=== PATIENT | male | born 1955 | race Caucasian/White ===

== ENCOUNTER 2017-02-20 17:29 | Inpatient (IN) | payer OTHER ==
[2017-02-20] MEDS: SOD CHLORIDE 0.9% 1,000 ML IV ×2 (18:02→20:35)
[2017-02-20] MEDS: HYDROmorphONE 1 MG/ML SYG IV ×2 (18:03→18:58)
[2017-02-20] MEDS: ONDANSETRON 4 MG INJ IV (18:03)
[2017-02-20 18:18] LABS: ADD MAN DIFF? NO
[2017-02-20 18:27] LABS: BASOPHIL # 0.1 10^3/ul (0.0-0.1); BASOPHILS % 0.5 % (0.0-2.0); EOSINOPHILS % 0.1 % (0.0-7.0); HEMOGLOBIN 13.8 g/dl (14.0-18.0); LYMPHOCYTES # 1.6 10^3/ul (0.8-2.9); LYMPHOCYTES % 9.2 % (15.0-51.0); MEAN CORPUSCULAR HEMOGLOBIN 31.2 pg (29.0-33.0); MEAN CORPUSCULAR HGB CONC 33.7 g/dl (32.0-37.0); MEAN CORPUSCULAR VOLUME 92.6 fl (82.0-101.0); MEAN PLATELET VOLUME 10.7 fl (7.4-10.4); MONOCYTE # 0.8 10^3/ul (0.3-0.9); MONOCYTES % 4.6 % (0.0-11.0); NEUTROPHIL # 14.5 10^3/ul (1.6-7.5); NEUTROPHILS % 84.9 % (39.0-77.0); PLATELET COUNT 268 10^3/UL (140-415); RED BLOOD COUNT 4.43 10^6/ul (4.70-6.10); RED CELL DISTRIBUTION WIDTH 13.1 % (11.5-14.5)
[2017-02-20 18:39] LABS: ANION GAP 23 (8-16); BLOOD UREA NITROGEN 20 mg/dl (7-20); CALCIUM 9.4 mg/dl (8.4-10.2); CARBON DIOXIDE 18 mmol/L (21-31); CHLORIDE 105 mmol/L (97-110); CREATININE 1.16 mg/dl (0.61-1.24); GLUCOSE 161 mg/dl (70-220); POTASSIUM 3.3 mmol/L (3.5-5.1); SODIUM 143 mmol/L (135-144)
[2017-02-20 18:40] LABS: LACTIC ACID 5.4 mmol/L (0.5-2.0)
[2017-02-20] MEDS: PIPER-TAZO 3.375 GM IV (PMX) 50 ML IVPB (18:51)
[2017-02-20] MEDS: SODIUM CHLORIDE 0.9% 1L BAG IV* (18:52)
[2017-02-20] MEDS ORDERED: ACETAMINOPHEN 325 MG TAB PO ×2 (19:00→20:30)
[2017-02-20] MEDS ORDERED: ONDANSETRON 4 MG INJ IV ×2 (19:00→20:30)
[2017-02-20 19:30] LABS: LACTIC ACID 3.1 mmol/L (0.5-2.0)
[2017-02-20 19:56] LABS: INR 0.96; PROTIME 12.9 Sec (11.9-14.9)
[2017-02-20] MEDS ORDERED: NACL 0.9% 3 ML SYG IV (20:30)
[2017-02-20 20:38] LABS: PARTIAL THROMBOPLASTIN TIME 24.5 Sec (25.0-35.0)
[2017-02-20] MEDS ORDERED: FENTAnyl 50 MCG/ML VIAL (21:42)
[2017-02-20] MEDS ORDERED: SUCCINYLCHOLINE CHLORIDE 100 MG/5 ML SYG IV (21:44)
[2017-02-20] MEDS ORDERED: PROPOFOL 20 ML (21:44)
[2017-02-20] MEDS ORDERED: ROCURONIUM 50 MG INJ (21:44)
[2017-02-20] MEDS ORDERED: SUGAMMADEX SODIUM 200 MG/2 ML VIAL IV (21:44)
[2017-02-20] MEDS ORDERED: LIDOCAINE 2% (SDV) 5 ML INJ (21:44)
[2017-02-20] MEDS ORDERED: METOCLOPRAMIDE 10 MG INJ IV (22:30)
[2017-02-20] MEDS ORDERED: MEPERIDINE 25 MG INJ IV (22:30)
[2017-02-20] MEDS ORDERED: HYDROmorphONE (0.2 MG/ML) 10ML SYG IV ×3 (22:30)
[2017-02-20] MEDS ORDERED: FENTAnyl 50 MCG/ML VIAL IV ×2 (22:30)
[2017-02-20] MEDS ORDERED: DIPHENHYDRAMINE 50 MG INJ IV (22:30)
[2017-02-20] MEDS: POLYMYXIN/BACITRACIN 1L IRRIG (22:38)
[2017-02-20] MEDS: BUPIVACAINE 0.25%/EPI (SDV) 30 ML INJ (23:55)
[2017-02-20] MEDS: LIDOCAINE 1% (MPF) 30 ML INJ (23:55)
[2017-02-20] MEDS ORDERED: ROPIVACAINE 0.5 % 30 ML VIAL (23:58)
[2017-02-21] MEDS ORDERED: PIPER-TAZO 3.375 GM IV (PMX) 100 ML (00:26)
[2017-02-21] MEDS: PIPER-TAZO 3.375 GM IV (PMX) 50 ML IVPB ×5 (00:28→23:44)
[2017-02-21] MEDS: ONDANSETRON 4 MG INJ IV (00:37)
[2017-02-21] MEDS: FENTAnyl 50 MCG/ML VIAL IV (00:37)
[2017-02-21] MEDS ORDERED: LABETALOL HCL 20MG INJ (00:53)
[2017-02-21] MEDS ORDERED: hydrALAzine 20 MG INJ (01:01)
[2017-02-21 01:06] LABS: LACTIC ACID 3.8 mmol/L (0.5-2.0)
[2017-02-21] MEDS: hydrALAzine 20 MG INJ IV (01:29)
[2017-02-21] MEDS: LABETALOL HCL 20MG INJ IV (01:30)
[2017-02-21] MEDS: SOD CHLORIDE 0.9% 1,000 ML IV ×4 (02:50→17:23)
[2017-02-21] MEDS: morphine 2 MG INJ IV ×4 (02:51→23:45)
[2017-02-21 04:34] LABS: ADD MAN DIFF? NO
[2017-02-21 04:39] LABS: WHITE BLOOD COUNT 16.1 10^3/ul (4.8-10.8)
[2017-02-21 04:39] LABS: ABNORMAL IP MESSAGE 1; BASOPHILS % 0.1 % (0.0-2.0); HEMATOCRIT 38.4 % (42.0-52.0); HEMOGLOBIN 12.5 g/dl (14.0-18.0); LYMPHOCYTES # 0.5 10^3/ul (0.8-2.9); LYMPHOCYTES % 3.2 % (15.0-51.0); MEAN CORPUSCULAR HEMOGLOBIN 30.9 pg (29.0-33.0); MEAN CORPUSCULAR HGB CONC 32.6 g/dl (32.0-37.0); MEAN PLATELET VOLUME 10.7 fl (7.4-10.4); MONOCYTES % 6.5 % (0.0-11.0); NEUTROPHIL # 14.4 10^3/ul (1.6-7.5); NEUTROPHILS % 89.6 % (39.0-77.0); PLATELET COUNT 216 10^3/UL (140-415); POSITIVE DIFF @See below; RED BLOOD COUNT 4.04 10^6/ul (4.70-6.10); RED CELL DISTRIBUTION WIDTH 13.2 % (11.5-14.5)
[2017-02-21 05:02] LABS: ALANINE AMINOTRANSFERASE 37 IU/L (13-69); ALBUMIN/GLOBULIN RATIO 1.48; ALKALINE PHOSPHATASE 73 IU/L (42-121); ANION GAP 17 (8-16); ASPARTATE AMINO TRANSFERASE 26 IU/L (15-46); BLOOD UREA NITROGEN 14 mg/dl (7-20); CALCIUM 8.2 mg/dl (8.4-10.2); CARBON DIOXIDE 24 mmol/L (21-31); CHLORIDE 103 mmol/L (97-110); CHOL/HDL RATIO 4.2 RATIO; CHOLESTEROL 199 mg/dl (100-200); CREATININE 0.91 mg/dl (0.61-1.24); GLUCOSE 131 mg/dl (70-220); HDL CHOLESTEROL 47 mg/dl (30-78); LDL CHOLESTEROL,CALCULATED 142 mg/dl; MAGNESIUM 1.5 mg/dl (1.7-2.5); POTASSIUM 3.7 mmol/L (3.5-5.1); SODIUM 140 mmol/L (135-144); TOTAL PROTEIN 6.7 g/dl (6.1-8.1); TRIGLYCERIDES 49 mg/dl (0-149)
[2017-02-21] MEDS: PANTOPRAZOLE 40 MG INJ IV (05:42)
[2017-02-21 06:08] LABS: LACTIC ACID 1.8 mmol/L (0.5-2.0)
[2017-02-21 10:16] LABS: LACTIC ACID 1.4 mmol/L (0.5-2.0)
[2017-02-21 11:39] LABS: HEMOGLOBIN A1C 4.3 % (0-5.9)
[2017-02-21 13:21] LABS: LACTIC ACID 1.3 mmol/L (0.5-2.0)
[2017-02-21] MEDS: MAGNESIUM SULFATE 2 GM/50 ML 50 ML IVPB (14:26)
[2017-02-21 17:03] LABS: LACTIC ACID 1.7 mmol/L (0.5-2.0)
[2017-02-22] MEDS: SOD CHLORIDE 0.9% 1,000 ML IV ×3 (02:02→21:28)
[2017-02-22 05:41] LABS: ADD MAN DIFF? NO
[2017-02-22 05:51] LABS: BASOPHILS % 0.2 % (0.0-2.0); EOSINOPHILS % 0.1 % (0.0-7.0); HEMATOCRIT 37.9 % (42.0-52.0); HEMOGLOBIN 12.4 g/dl (14.0-18.0); LYMPHOCYTES # 1.1 10^3/ul (0.8-2.9); MEAN CORPUSCULAR HEMOGLOBIN 31.6 pg (29.0-33.0); MEAN CORPUSCULAR HGB CONC 32.7 g/dl (32.0-37.0); MEAN CORPUSCULAR VOLUME 96.4 fl (82.0-101.0); MEAN PLATELET VOLUME 10.8 fl (7.4-10.4); MONOCYTE # 1.1 10^3/ul (0.3-0.9); MONOCYTES % 8.2 % (0.0-11.0); NEUTROPHIL # 11.1 10^3/ul (1.6-7.5); NEUTROPHILS % 83.1 % (39.0-77.0); PLATELET COUNT 196 10^3/UL (140-415); RED BLOOD COUNT 3.93 10^6/ul (4.70-6.10); RED CELL DISTRIBUTION WIDTH 13.2 % (11.5-14.5)
[2017-02-22 05:51] LABS: WHITE BLOOD COUNT 13.4 10^3/ul (4.8-10.8)
[2017-02-22] MEDS: PIPER-TAZO 3.375 GM IV (PMX) 50 ML IVPB ×3 (05:57→18:30)
[2017-02-22] MEDS: PANTOPRAZOLE 40 MG INJ IV (05:57)
[2017-02-22] MEDS: morphine 2 MG INJ IV ×4 (05:57→18:35)
[2017-02-22 06:04] LABS: PHOSPHORUS 3.3 mg/dl (2.5-4.9)
[2017-02-22 06:04] LABS: MAGNESIUM 2.1 mg/dl (1.7-2.5)
[2017-02-22 06:06] LABS: ALANINE AMINOTRANSFERASE 31 IU/L (13-69); ALBUMIN 3.5 g/dl (3.3-4.9); ALBUMIN/GLOBULIN RATIO 1.29; ALKALINE PHOSPHATASE 61 IU/L (42-121); ANION GAP 13 (8-16); ASPARTATE AMINO TRANSFERASE 19 IU/L (15-46); BILIRUBIN,INDIRECT 1.4 mg/dl (0-1.1); BILIRUBIN,TOTAL 1.4 mg/dl (0.2-1.3); BLOOD UREA NITROGEN 13 mg/dl (7-20); CALCIUM 8.2 mg/dl (8.4-10.2); CARBON DIOXIDE 26 mmol/L (21-31); CHLORIDE 107 mmol/L (97-110); CREATININE 1.01 mg/dl (0.61-1.24); GLUCOSE 96 mg/dl (70-220); POTASSIUM 3.6 mmol/L (3.5-5.1); SODIUM 142 mmol/L (135-144); TOTAL PROTEIN 6.2 g/dl (6.1-8.1)
[2017-02-22] MEDS ORDERED: VANCOMYCIN IV PER PHARMACY XX (10:30)
[2017-02-22] MEDS: VANCOMYCIN 1.25 GM in SODIUM CHLORIDE 0.45 % 250 ML IVPB (13:34)
[2017-02-23] MEDS: VANCOMYCIN 750 MG in DEXTROSE 5% 150 ML IVPB ×2 (02:08→13:42)
[2017-02-23 05:15] LABS: ADD MAN DIFF? NO
[2017-02-23 05:17] LABS: BASOPHILS % 0.3 % (0.0-2.0); EOSINOPHILS # 0.1 10^3/ul (0.0-0.5); HEMATOCRIT 34.5 % (42.0-52.0); HEMOGLOBIN 11.5 g/dl (14.0-18.0); LYMPHOCYTES # 1.1 10^3/ul (0.8-2.9); LYMPHOCYTES % 11.3 % (15.0-51.0); MEAN CORPUSCULAR HEMOGLOBIN 31.8 pg (29.0-33.0); MEAN CORPUSCULAR HGB CONC 33.3 g/dl (32.0-37.0); MEAN CORPUSCULAR VOLUME 95.3 fl (82.0-101.0); MEAN PLATELET VOLUME 10.9 fl (7.4-10.4); MONOCYTE # 0.9 10^3/ul (0.3-0.9); MONOCYTES % 8.6 % (0.0-11.0); NEUTROPHIL # 7.9 10^3/ul (1.6-7.5); NEUTROPHILS % 78.5 % (39.0-77.0); PLATELET COUNT 180 10^3/UL (140-415); RED BLOOD COUNT 3.62 10^6/ul (4.70-6.10); RED CELL DISTRIBUTION WIDTH 13.1 % (11.5-14.5)
[2017-02-23 05:17] LABS: WHITE BLOOD COUNT 10.1 10^3/ul (4.8-10.8)
[2017-02-23] MEDS: PIPER-TAZO 3.375 GM IV (PMX) 50 ML IVPB ×3 (05:45→11:34)
[2017-02-23] MEDS: PANTOPRAZOLE 40 MG INJ IV (05:45)
[2017-02-23 06:17] LABS: ANION GAP 14 (8-16); BLOOD UREA NITROGEN 11 mg/dl (7-20); CALCIUM 8.6 mg/dl (8.4-10.2); CARBON DIOXIDE 29 mmol/L (21-31); CHLORIDE 105 mmol/L (97-110); CREATININE 0.99 mg/dl (0.61-1.24); GLUCOSE 107 mg/dl (70-220); POTASSIUM 3.6 mmol/L (3.5-5.1); SODIUM 144 mmol/L (135-144)
[2017-02-23] MEDS: SOD CHLORIDE 0.9% 1,000 ML IV ×2 (08:02→12:16)
[2017-02-23 08:26] LABS: ADD UMIC NO; UR ASCORBIC ACID NEGATIVE (NEGATIVE); UR BILIRUBIN (Dip) NEGATIVE (NEGATIVE); UR BLOOD (Dip) NEGATIVE (NEGATIVE); UR CLARITY CLEAR (CLEAR); UR COLOR YELLOW (YELLOW); UR GLUCOSE (Dip) NEGATIVE (NEGATIVE); UR KETONES (Dip) TRACE mg/dL (NEGATIVE); UR LEUKOCYTE ESTERASE (Dip) NEGATIVE Leu/ul (NEGATIVE); UR NITRITE (Dip) NEGATIVE (NEGATIVE); UR SPECIFIC GRAVITY (Dip) 1.008 (1.003-1.030); UR TOTAL PROTEIN (Dip) NEGATIVE (NEGATIVE); UR UROBILINOGEN (Dip) 2+ mg/dL (NEGATIVE)
[2017-02-23 12:26] LABS: ALANINE AMINOTRANSFERASE 25 IU/L (13-69); ALBUMIN 3.7 g/dl (3.3-4.9); ALBUMIN/GLOBULIN RATIO 1.32; ALKALINE PHOSPHATASE 64 IU/L (42-121); ANION GAP 15 (8-16); ASPARTATE AMINO TRANSFERASE 21 IU/L (15-46); BILIRUBIN,INDIRECT 1.2 mg/dl (0-1.1); BILIRUBIN,TOTAL 1.2 mg/dl (0.2-1.3); BLOOD UREA NITROGEN 10 mg/dl (7-20); CALCIUM 8.4 mg/dl (8.4-10.2); CARBON DIOXIDE 27 mmol/L (21-31); CHLORIDE 107 mmol/L (97-110); CREATININE 0.97 mg/dl (0.61-1.24); GLUCOSE 105 mg/dl (70-220); POTASSIUM 3.6 mmol/L (3.5-5.1); SODIUM 145 mmol/L (135-144); TOTAL PROTEIN 6.5 g/dl (6.1-8.1)
[2017-02-23 19:36] LABS: PSA, FREE 0.4 ng/mL
[2017-02-24 01:39] LABS: VANCOMYCIN,TROUGH 6.3 ug/ml (10.0-20.0)
[2017-02-24] MEDS: VANCOMYCIN 750 MG in DEXTROSE 5% 150 ML IVPB ×2 (01:45→10:04)
[2017-02-24] MEDS: PANTOPRAZOLE (EC) 40 MG TAB PO (06:26)
[2017-02-24 06:34] LABS: ADD MAN DIFF? NO
[2017-02-24 06:52] LABS: BASOPHIL # 0.1 10^3/ul (0.0-0.1); BASOPHILS % 0.6 % (0.0-2.0); EOSINOPHILS # 0.3 10^3/ul (0.0-0.5); EOSINOPHILS % 2.6 % (0.0-7.0); HEMATOCRIT 36.3 % (42.0-52.0); HEMOGLOBIN 12.3 g/dl (14.0-18.0); LYMPHOCYTES # 1.7 10^3/ul (0.8-2.9); LYMPHOCYTES % 17.2 % (15.0-51.0); MEAN CORPUSCULAR HEMOGLOBIN 32.1 pg (29.0-33.0); MEAN CORPUSCULAR HGB CONC 33.9 g/dl (32.0-37.0); MEAN CORPUSCULAR VOLUME 94.8 fl (82.0-101.0); MEAN PLATELET VOLUME 11.3 fl (7.4-10.4); MONOCYTE # 0.9 10^3/ul (0.3-0.9); MONOCYTES % 8.8 % (0.0-11.0); NEUTROPHIL # 7.1 10^3/ul (1.6-7.5); NEUTROPHILS % 70.6 % (39.0-77.0); NUCLEATED RED BLOOD CELLS # 0.1 10^3/ul (0.0-0.0); NUCLEATED RED BLOOD CELLS% 0.8 /100WBC (0.0-0.0); PLATELET COUNT 219 10^3/UL (140-415); RED BLOOD COUNT 3.83 10^6/ul (4.70-6.10)
[2017-02-24 06:52] LABS: WHITE BLOOD COUNT 10.1 10^3/ul (4.8-10.8)
[2017-02-24 07:22] LABS: ANION GAP 16 (8-16); BLOOD UREA NITROGEN 11 mg/dl (7-20); CARBON DIOXIDE 28 mmol/L (21-31); CHLORIDE 103 mmol/L (97-110); CREATININE 1.03 mg/dl (0.61-1.24); GLUCOSE 96 mg/dl (70-220); POTASSIUM 3.6 mmol/L (3.5-5.1); SODIUM 143 mmol/L (135-144)
== END 2017-02-24 18:52 | disposition home or self-care (01) | DRG 351 ==
LOC: MS1 02-21 02:12 → E/R 17:29 → REC 18:59
PROC: 0YU50JZ Supplement Right Inguinal Region with Synthetic Substitute, Open Approach (ICD-10-PCS; principal; 2017-02-20 00:02)
DX: K40.30 Unilateral inguinal hernia, with obstruction, without gangrene, not specified as recurrent (principal); E87.2 Acidosis; D72.829 Elevated white blood cell count, unspecified; K80.20 Calculus of gallbladder without cholecystitis without obstruction; I71.4 Abdominal aortic aneurysm, without rupture; N40.0 Benign prostatic hyperplasia without lower urinary tract symptoms; K43.9 Ventral hernia without obstruction or gangrene; D64.9 Anemia, unspecified
CPT/HCPCS: 71010; 74176; 76705; 80048; 80053; 80061; 80202; 81003; 83036; 83605; 83735; 84100; 84153; 84154; 84443; 85025; 85610; 85730; 87040; 88304; 93005

== ENCOUNTER → 2018-09-04 | Emergency (ER) | payer OTHER | END | disposition home or self-care (01) | LOC: FTE 11:56 | DX: H00.015 Hordeolum externum left lower eyelid (principal) | CPT/HCPCS: 99283; Z7502 ==